=== PATIENT | male | born 1985 | race Caucasian/White ===

== ENCOUNTER 2016-11-27 08:07 | Emergency (ER) | payer OTHER, BC ==
[~2016-11-27] VITALS: Ht 175.3 cm; Wt 82.1 kg
[2016-11-27] MEDS ORDERED: MOTRIN800 MG PO (09:19)
[2016-11-27 10:31] VITALS: BP 161/105
== END 2016-11-27 10:32 | disposition home or self-care (01) ==
LOC: EME 08:07
DX: S13.9XXA Sprain of joints and ligaments of unspecified parts of neck, initial encounter (principal); V49.40XA Driver injured in collision with unspecified motor vehicles in traffic accident, initial encounter
CPT/HCPCS: 72040; 99281; 99284

== ENCOUNTER 2016-12-10 10:18 | Emergency (ER) | payer OTHER, BC ==
[~2016-12-10] VITALS: Ht 177.8 cm; Wt 82.6 kg
[~2016-12-10 10:18] MED LIST: MOTRIN800 MG PO
[2016-12-10] MEDS ORDERED: FLEXERIL10 MG PO (12:37)
[2016-12-10 12:51] VITALS: BP 159/110
== END 2016-12-10 13:01 | disposition home or self-care (01) ==
LOC: EME 10:18
DX: S39.012A Strain of muscle, fascia and tendon of lower back, initial encounter (principal); V69.40XA Driver of heavy transport vehicle injured in collision with unspecified motor vehicles in traffic accident, initial encounter
CPT/HCPCS: 99281; 99283

== ENCOUNTER 2017-09-06 09:28 | Day surgery (SDC) | payer BC ==
[~2017-09-06] VITALS: Ht 177.8 cm; Wt 78.0 kg
[~2017-09-06 09:28] MED LIST changes: +ADVAIR 500/501 DISK IH; +APRESOLINE25 MG PO; +ATENOLOL50 MG PO; +CYANOCOBALAM1000 MCG PO; +FLEXERIL10 MG PO; +MEN'S MULTI-VI1 EACH PO; +PROAIR HFA8.5 GM IH; +TYLENOL EXTRA500 MG PO
[2017-09-06 10:05] VITALS: BP 128/80
[2017-09-06 13:23] VITALS: BP 137/87
[2017-09-06 14:05] VITALS: BP 128/74
== END 2017-09-06 14:15 | disposition home or self-care (01) ==
LOC: SDC 09:28
PROC: 0T768DZ Dilation of Right Ureter with Intraluminal Device, Via Natural or Artificial Opening Endoscopic (ICD-10-PCS; principal; 2017-09-06)
PROC: BT1F1ZZ Fluoroscopy of Left Kidney, Ureter and Bladder using Low Osmolar Contrast (ICD-10-PCS; 2017-09-06)
DX: N13.1 Hydronephrosis with ureteral stricture, not elsewhere classified (principal); I10 Essential (primary) hypertension; J45.909 Unspecified asthma, uncomplicated; Z87.891 Personal history of nicotine dependence
CPT/HCPCS: 74018; 74420; 76000; 93005; C1758; C1769; J0690; J1580; J1885; J2405; J3010

== ENCOUNTER → 2018-01-27 | Outpatient (CLI) | payer BC | END | disposition home or self-care (01) | LOC: NUC 11:00 | DX: N13.4 Hydroureter (principal); N13.5 Crossing vessel and stricture of ureter without hydronephrosis | CPT/HCPCS: 78709; A9562; J1940 ==